=== PATIENT | female | born 1985 | race Caucasian/White ===

== ENCOUNTER 2023-03-10 18:54 | Emergency (ER) | payer OTHER ==
[2023-03-10 18:59] VITALS: BP 121/87; PULSE 78; RESP 18; TEMP 98.7; BMI 27.4
[2023-03-10] MEDS ORDERED: predniSONE 20 MG TABLET (UD) PO ONE (20:19)
[2023-03-10] MEDS ORDERED: predniSONE 20 MG TABLET (UD) ONE (20:27)
== END 2023-03-10 20:30 | disposition home or self-care (01) ==
LOC: JERFT 18:54
DX: R21 Rash and other nonspecific skin eruption (principal); L50.9 Urticaria, unspecified
CPT/HCPCS: 84703; 99283-25

== ENCOUNTER 2023-04-06 04:09 | Day surgery (SDC) | payer OTHER ==
[2023-03-31 16:18] VITALS: BMI 27.4
[~2023-04-06 04:09] MED LIST: BUPIVACAINE HCL/PF 0.5% (5 MG/ML) 30 ML VIAL IJ ONE; DEXAMETHASONE SOD PHOSPHATE 10 MG/1 ML VIAL IM ONE; IOHEXOL 180 MG/1 ML ML IJ ONE; LIDOCAINE HCL 1% PRESERVATIVE FREE - 30ML VIAL IJ ONE
[2023-04-06] MEDS ORDERED: BUPIVACAINE HCL/PF 0.25% (2.5MG/ML) 10 ML VIAL ONE (07:32)
[2023-04-06] MEDS ORDERED: DEXAMETHASONE SOD PHOSPHATE 10 MG/1 ML VIAL ONE (07:32)
[2023-04-06] MEDS ORDERED: LIDOCAINE HCL/PF 1% SDV 5ML VIAL ONE (07:32)
[2023-04-06] MEDS ORDERED: MIDAZOLAM HCL 2 MG/2 ML SINGLE DOSE VIAL ONE (11:07)
[2023-04-06] MEDS ORDERED: LIDOCAINE HCL 1% PRESERVATIVE FREE - 30ML VIAL IJ ONE (11:18)
[2023-04-06] MEDS ORDERED: DEXAMETHASONE SOD PHOSPHATE 10 MG/1 ML VIAL IM ONE (11:20)
[2023-04-06] MEDS ORDERED: IOHEXOL 180 MG/1 ML ML IJ ONE (11:20)
[2023-04-06 12:19] VITALS: BP 107/76; PULSE 68; RESP 20; TEMP 97.2
== END 2023-04-06 12:36 | disposition home or self-care (01) ==
LOC: JASU-SURG 04:09
PROVIDERS: ATTEND Physical Medicine & Rehabilitation
PROC: 3E0R33Z Introduction of Anti-inflammatory into Spinal Canal, Percutaneous Approach (ICD-10-PCS; principal; 2023-04-06 11:00)
DX: M54.12 Radiculopathy, cervical region (principal); M54.2 Cervicalgia
CPT/HCPCS: 76000-TC-FY; 81025; J1100

== ENCOUNTER 2023-09-11 03:45 | Emergency (ER) | payer OTHER ==
[2023-09-11 04:01] VITALS: BP 129/85; PULSE 97; RESP 20; TEMP 98.2; BMI 27.4
[2023-09-11] MEDS ORDERED: ONDANSETRON 4 MG/2 ML VIAL IVPUSH ONE (04:19)
[2023-09-11] MEDS ORDERED: FAMOTIDINE 20 MG/50 ML IVPB 20 MG/50 ML MG IVPB ONE ×2 (04:19→04:29)
[2023-09-11] MEDS ORDERED: ACETAMINOPHEN 1000 MG/100 ML BAG IVPB ONE (04:19)
[2023-09-11] MEDS ORDERED: SODIUM CHLORIDE 0.9% 500 ML INFUS.BAG IV ONE (04:19)
[2023-09-11] MEDS ORDERED: MAG HYDROX/AL HYDROX/SIMETH 30 ML UNIT-DOSE CUP PO ONE (04:19)
[2023-09-11] MEDS ORDERED: ACETAMINOPHEN INJECTION 100 ML IVPB ONE (04:29)
[2023-09-11] MEDS ORDERED: ONDANSETRON 4 MG/2 ML VIAL ONE (04:29)
[2023-09-11] MEDS ORDERED: MAG HYDROX/AL HYDROX/SIMETH 30 ML UNIT-DOSE CUP ONE (04:29)
[2023-09-11 05:46] LABS: PH,URINE 6.5 (5.0-8.0); URINE APPEARANCE CLEAR; URINE BILIRUBIN NEGATIVE (NEGATIVE); URINE COLOR YELLOW; URINE GLUCOSE (UA) NEGATIVE (NEGATIVE); URINE KETONE NEGATIVE (NEGATIVE); URINE LEUK ESTERASE NEGATIVE (NEGATIVE); URINE NITRITE NEGATIVE (NEGATIVE); URINE PROTEIN NEGATIVE (NEGATIVE); URINE UROBILINOGEN 0.2 mg/dL (0.2-1.0)
[2023-09-11 06:05] LABS: BASO % 0.6 % (0-2.0); EOS % 4.3 % (0-4.5); HEMATOCRIT 42.2 % (32.4-45.2); HEMOGLOBIN 14.2 GM/dL (10.7-15.3); LYMPH % 18.9 % (8-40); MCHC 33.6 g/dl (32.0-36.0); MEAN CELL VOLUME 89.3 fl (80-96); MEAN PLT VOLUME 8.2 fl (7.5-11.1); MONO % 6.3 % (3.8-10.2); NEUT % 69.9 % (42.8-82.8); PLATELET COUNT 349 10^3/uL (134-434); RBC 4.73 M/mm3 (3.60-5.2); WHITE BLOOD COUNT 9.3 K/mm3 (4.0-10.0)
[2023-09-11 06:12] LABS: POTASSIUM 4.7 mmol/L (3.5-5.1)
[2023-09-11 06:14] LABS: CALCIUM 8.8 mg/dL (8.5-10.1)
[2023-09-11 06:15] LABS: ALBUMIN 3.9 g/dl (3.4-5.0)
[2023-09-11 06:16] LABS: HCG,QUALITATIVE URINE Negative
[2023-09-11 06:18] LABS: CREATININE 0.6 mg/dL (0.55-1.3)
[2023-09-11 06:19] LABS: BILIRUBIN,TOTAL 0.4 mg/dL (0.2-1); TOT PROT 7.7 g/dl (6.4-8.2)
== END 2023-09-11 06:38 | disposition home or self-care (01) ==
LOC: JER 03:45
PROC: 3E033GC Introduction of Other Therapeutic Substance into Peripheral Vein, Percutaneous Approach (ICD-10-PCS; principal; 2023-09-11)
PROC: 3E033NZ Introduction of Analgesics, Hypnotics, Sedatives into Peripheral Vein, Percutaneous Approach (ICD-10-PCS; 2023-09-11)
PROC: 3E033GC Introduction of Other Therapeutic Substance into Peripheral Vein, Percutaneous Approach (ICD-10-PCS; 2023-09-11)
DX: R10.13 Epigastric pain (principal); R11.2 Nausea with vomiting, unspecified; K27.9 Peptic ulcer, site unspecified, unspecified as acute or chronic, without hemorrhage or perforation
CPT/HCPCS: 36415; 80053; 81003; 83690; 84703; 85025; 87086; 99284-25

== ENCOUNTER 2024-03-28 09:16 | Emergency (ER) | payer OTHER ==
[2024-03-28 09:25] VITALS: BP 102/75; PULSE 106; RESP 18; TEMP 98.4; BMI 28.3
[2024-03-28] MEDS ORDERED: METOCLOPRAMIDE HCL INJECTION 10 MG/2 ML VIAL ONE (10:25)
[2024-03-28 10:29] LABS: BASO % 0.4 % (0-2.0); EOS % 1.2 % (0-4.5); HEMATOCRIT 40.8 % (32.4-45.2); HEMOGLOBIN 14.4 GM/dL (10.7-15.3); LYMPH % 8.3 % (8-40); MCH 31.2 pg (25.7-33.7); MCHC 35.3 g/dl (32.0-36.0); MEAN CELL VOLUME 88.6 fl (80-96); MEAN PLT VOLUME 7.4 fl (7.5-11.1); MONO % 7.7 % (3.8-10.2); NEUT % 82.4 % (42.8-82.8); PLATELET COUNT 253 10^3/uL (134-434); RDW 13.2 % (11.6-15.6); WHITE BLOOD COUNT 7.2 K/mm3 (4.0-10.0)
[2024-03-28] MEDS: METOCLOPRAMIDE HCL INJECTION 10 MG/2 ML VIAL IVPUSH ONE (10:38)
[2024-03-28] MEDS: SODIUM CHLORIDE 0.9% 500 ML INFUS.BAG IV ONE (10:38)
[2024-03-28 11:48] LABS: POTASSIUM 3.7 mmol/L (3.5-5.1)
[2024-03-28 11:51] LABS: CALCIUM 8.3 mg/dL (8.5-10.1)
[2024-03-28 11:53] LABS: ALBUMIN 3.5 g/dl (3.4-5.0); BLOOD UREA NITROGEN 7.8 mg/dL (7-18)
[2024-03-28 11:55] LABS: CREATININE 0.6 mg/dL (0.55-1.3)
[2024-03-28 11:56] LABS: BILIRUBIN,TOTAL 0.9 mg/dL (0.2-1)
== END 2024-03-28 12:39 | disposition home or self-care (01) ==
LOC: JER 09:16
PROC: 3E033GC Introduction of Other Therapeutic Substance into Peripheral Vein, Percutaneous Approach (ICD-10-PCS; principal; 2024-03-28)
DX: R11.2 Nausea with vomiting, unspecified (principal); R19.7 Diarrhea, unspecified; K52.9 Noninfective gastroenteritis and colitis, unspecified; Z20.822 Contact with and (suspected) exposure to COVID-19
CPT/HCPCS: 0241U-QW; 36415; 80053; 84703; 85025; 96374; 99284-25

== ENCOUNTER 2024-08-26 13:33 | Emergency (ER) | payer OTHER ==
[2024-08-26 13:43] VITALS: BP 130/84; PULSE 77; RESP 20; TEMP 99; BMI 27.4
[2024-08-26] MEDS ORDERED: LORATADINE 10 MG TABLET ONE (14:54)
[2024-08-26] MEDS ORDERED: FAMOTIDINE 20 MG TABLET ONE (14:54)
[2024-08-26] MEDS ORDERED: predniSONE 20 MG TABLET (UD) ONE (14:54)
[2024-08-26] MEDS: LORATADINE 10 MG TABLET PO ONE (14:57)
[2024-08-26] MEDS: predniSONE 20 MG TABLET (UD) PO ONE (14:57)
[2024-08-26] MEDS: FAMOTIDINE 20 MG TABLET PO ONE (14:58)
== END 2024-08-26 16:04 | disposition home or self-care (01) ==
LOC: JER 13:33
DX: L29.9 Pruritus, unspecified (principal); R51.9 Headache, unspecified; T49.95XA Adverse effect of unspecified topical agent, initial encounter
CPT/HCPCS: 99283-25

== ENCOUNTER 2025-07-18 14:05 | Emergency (ER) | payer OTHER ==
[2025-07-18 14:15] VITALS: BP 124/82; PULSE 81; RESP 18; TEMP 98.3; BMI 29.2
[2025-07-18 15:35] LABS: EPI CELLS 3 /uL (0-25.1); HYALINE CASTS 1 /uL (0-3.1); URINE APPEARANCE CLEAR; URINE BILIRUBIN NEGATIVE (NEGATIVE); URINE COLOR DK YELLOW; URINE GLUCOSE (UA) NEGATIVE (NEGATIVE); URINE KETONE NEGATIVE (NEGATIVE); URINE LEUK ESTERASE 3+ (NEGATIVE); URINE NITRITE POSITIVE (NEGATIVE); URINE PROTEIN NEGATIVE (NEGATIVE); URINE RBC 7 /uL (0-23.9); URINE UROBILINOGEN 1.0 mg/dL (0.2-1.0); URINE WBC 213 /uL (0-25.8)
[2025-07-18 15:37] LABS: HCG,QUALITATIVE URINE Negative
[2025-07-19 11:08] LABS: URINE BACTERIA 200 /uL (0-1359)
== END 2025-07-18 16:00 | disposition home or self-care (01) ==
LOC: JERFT 14:05
DX: N30.01 Acute cystitis with hematuria (principal); R21 Rash and other nonspecific skin eruption; L98.9 Disorder of the skin and subcutaneous tissue, unspecified
CPT/HCPCS: 81003; 84703; 87086; 99283-25